=== PATIENT | female | born 1985 | race Caucasian/White ===

== ENCOUNTER 2017-01-27 14:05 | Emergency (ER) | payer OTHER ==
[~2017-01-27] VITALS: Ht 170.2 cm; Wt 79.0 kg
[~2017-01-27 14:05] MED LIST: PRENTAB26 PO; [UNRECOGNIZED DRUG - CODE] SL
[2017-01-27 14:07] VITALS: TEMP 36.6; Ht 170.2 cm; Wt 79.0 kg
[2017-01-27] MEDS ORDERED: ESCI1TAB6 PO (14:18)
[2017-01-27] MEDS ORDERED: SBTSL/8 SL (14:18)
[2017-01-27] MEDS ORDERED: GABA600T PO (14:18)
--- NOTE | 2017-01-27 14:58 | DIAGNOSTIC IMAGING REPORT ---
LEFT CLAVICLE CLINICAL HISTORY: fall trauma. Pain. COMPARISON: None. DISCUSSION: Angled fracture mid left clavicular shaft. Bony apposition is generally good. The acromioclavicular joint appears to be intact. There is no evidence for soft tissue swelling. IMPRESSION: Angled fracture midshaft left clavicle The above report was generated using voice recognition software. It may contain grammatical, syntax or spelling errors. Electronically signed by: Shahriar Mustafa M.D. 01/27/2017 2:56 PM Dictated Date/Time: 01/27/2017 2:56 PM
--- NOTE | 2017-01-27 14:59 | DIAGNOSTIC IMAGING REPORT ---
LEFT SHOULDER MIN 2 VIEWS ROUTINE CLINICAL HISTORY: fall trauma COMPARISON: None. DISCUSSION: Noted again is angled fracture midshaft left clavicle. The shoulder specifically is negative for any additional acute bony abnormality. Glenohumeral joint is intact. There is no evidence for soft tissue swelling. IMPRESSION: Angled fracture midshaft left clavicle. The left shoulder is otherwise negative The above report was generated using voice recognition software. It may contain grammatical, syntax or spelling errors. Electronically signed by: Shahriar Mustafa M.D. 01/27/2017 2:57 PM Dictated Date/Time: 01/27/2017 2:57 PM
[2017-01-27] MEDS ORDERED: KETOROLAC TROMETHAMINE 60 MG/2 ML VIAL IM STA (15:11)
[2017-01-27] MEDS ORDERED: KETO10TA PO (15:17)
--- NOTE | 2017-01-27 15:18 | EMERGENCY ROOM VISIT NOTE ---
History Report prepared by Clark: Terrie Li Under the Supervision of: Dr. Lamin Jay D.O. First contact with patient: 14:23 Chief Complaint: FALL Stated Complaint: FALL,COLLAR BONE PAIN History of Present Illness The patient is a 31 year old female who presents to the Emergency Room with complaints of an episode of a fall beginning last night. The patient states that she has been having trouble sleeping lately and is extremely tired but is unable to sleep. She reports that she has been getting tired when she is standing and she got up last night to go to the bathroom and fell onto her left side. She complains of left shoulder and collarbone pain. The patient notes that she needs to schedule a sleep study. The patient rates her pain as an 8/10 in severity. Source of History: patient Onset: last night Position: other (global) Symptom Intensity: 8/10 Quality: other (fall) Timing: constant Note: The patient complains of left shoulder and collar bone pain. Review of Systems See HPI for pertinent positives & negatives. A total of 10 systems reviewed and were otherwise negative. Past Medical & Surgical Medical Problems: (1) No Known Active Medical Problems Family History No pertinent family history stated. Social History Marital Status: single Housing Status: lives alone Occupation Status: employed Current/Historical Medications Scheduled Buprenorphine HCl (Buprenorphine HCl), 16 MG SL BID Escitalopram Oxalate (Lexapro), 5 MG PO DAILY Gabapentin (Neurontin), 600 MG PO TID Allergies Coded Allergies: No Known Allergies (Unverified , 01/27/17) Physical Exam Vital Signs Date Time Temp Pulse Resp B/P (MAP) Pulse Ox O2 Delivery O2 Flow Rate FiO2 01/27/17 14:07 36.6 85 20 133/86 99 Room Air Physical Exam CONSTITUTIONAL/VITAL SIGNS: Reviewed / noted above. GENERAL: Non-toxic in appearance. INTEGUMENTARY: Warm, dry, and [place]. HEAD: Normocephalic. EYES: without scleral icterus or trauma. ENT/OROPHARYNX: clear and moist. LYMPHADENOPATHY/NECK: Is supple without lymphadenopathy or meningismus. RESPIRATORY: Lungs clear and equal. CARDIOVASCULAR: Regular rate and rhythm. GI/ABDOMEN: Soft and nontender. No organomegaly or pulsatile mass. No rebound or guarding. Normal bowel sounds. EXTREMITIES: Warm and well perfused. Tender to palpation to the lateral left clavicle. BACK: No CVA tenderness. NEUROLOGICAL: Intact without focal deficits. PSYCHIATRIC: normal affect. MUSCULOSKELETAL: Normally developed with good muscle tone. Medical Decision & Procedures ER Provider Diagnostic Interpretation: X ray results and stated below per my interpretation and radiology interpretation. LEFT SHOULDER MIN 2 VIEWS ROUTINE DISCUSSION: Noted again is angled fracture midshaft left clavicle. The shoulder specifically is negative for any additional acute bony abnormality. Glenohumeral joint is intact. There is no evidence for soft tissue swelling. IMPRESSION: Angled fracture midshaft left clavicle. The left shoulder is otherwise negative The above report was generated using voice recognition software. It may contain grammatical, syntax or spelling errors. Electronically signed by: Shahriar Mustafa M.D. 01/27/2017 2:57 PM Dictated Date/Time: 01/27/2017 2:57 PM LEFT CLAVICLE DISCUSSION: Angled fracture mid left clavicular shaft. Bony apposition is generally good. The acromioclavicular joint appears to be intact. There is no evidence for soft tissue swelling. IMPRESSION: Angled fracture midshaft left clavicle The above report was generated using voice recognition software. It may contain grammatical, syntax or spelling errors. Electronically signed by: Shahriar Mustafa M.D. 01/27/2017 2:56 PM Dictated Date/Time: 01/27/2017 2:56 PM ED Course 1423: Previous medical records were reviewed. The patient was evaluated in room B5. A complete history and physical examination was performed. 1511: Toradol Inj 60mg IM. Arm sling. 1513: On reevaluation, the patient is doing well. I discussed the results and findings with the patient. She verbalized agreement of the treatment plan. The patient was discharged home. Medical Decision Differential diagnosis: Etiologies such as fracture, dislocation, neurovascular compromise, compartment syndrome, soft tissue injury, as well as others were entertained. Medication Reconciliation: I attest that I have personally reviewed the patient' s current medication list. Blood pressure Screening: Patient was found to have normal blood pressure on screening and does not require follow-up. This is a 31-year-old female who presents to the ED with a chief complaint of left shoulder pain after fall yesterday. The patient had a ground-level fall. The left shoulder pain primarily in the left mid to lateral clavicle region. Her vital signs are normal. Her physical exam reveals some tenderness to the mid the left lateral clavicle. There is a small deformity there. She is neurovascularly intact distally in the left upper extremity. X-ray shows a angulated left clavicle fracture. The patient was treated with Toradol IM. She 'll be discharged on Toradol by mouth. She was placed in the left arm sling. Orthopedic follow-up was recommended. Referral given to the orthopedist on-call , Dr. Kessler. Impression Primary Impression: Fracture of clavicle, left, closed Scribe Attestation The scribe's documentation has been prepared under my direction and personally reviewed by me in its entirety. I confirm that the note above accurately reflects all work, treatment, procedures, and medical decision making performed by me. Departure Information Dispostion Home / Self-Care Prescriptions Ketorolac (Toradol) 10 Mg Tab 10 MG PO Q6H Y for Pain, #20 TAB Prov: Lamin Jay D.O. 01/27/17 Referrals No Doctor, Assigned (PCP) Theodore Kessler M.D. Forms HOME CARE DOCUMENTATION FORM, IMPORTANT VISIT INFORMATION Patient Instructions ED Fx Clavicle, My [facility] Additional Instructions Keep sling in place for comfort. Toradol for pain as prescribed. Follow-up with Dr. Kessler from orthopedics for further evaluation. Call tomorrow for appointment.
[2017-01-27 15:27] VITALS: BP 148/88; PULSE 84; O2SAT 95
== END 2017-01-27 15:28 | disposition home or self-care (01) ==
LOC: C.EDB 14:06 → C.EDC 15:28
DX: S42.002A Fracture of unspecified part of left clavicle, initial encounter for closed fracture (principal); W19.XXXA Unspecified fall, initial encounter; Y92.013 Bedroom of single-family (private) house as the place of occurrence of the external cause; Z79.899 Other long term (current) drug therapy

== ENCOUNTER 2024-11-16 13:00 | Inpatient (IN) ==
[2024-11-16] MEDS: OXYTOCIN 30 UNITS/NSS 30 UNITS/500 ML BAG IV PRN (13:10)
[2024-11-16] MEDS: OXYTOCIN 10 UNITS/ML VIAL ONE (13:12)
[2024-11-16] MEDS: METHYLERGONOVINE MALEATE 0.2 MG/ML AMP IM ONE (13:18)
[2024-11-16] MEDS ORDERED: LIDOCAINE 1% LOCAL 20 ML VIAL INFIL PRN (13:21)
[2024-11-16] MEDS ORDERED: IBUPROFEN 600 MG TAB PO PRN (13:25)
[2024-11-16] MEDS ORDERED: BENZOCAINE 20% SPRY 85 APPLN/85 GM CAN EXT PRN (13:25)
[2024-11-16] MEDS ORDERED: ACETAMINOPHEN 325 MG TAB PO PRN (13:25)
[2024-11-16] MEDS ORDERED: HYDROCORTISONE ACETATE 25 MG SUPP PR PRN (13:25)
[2024-11-16] MEDS ORDERED: bisacodyL 10 MG SUPP PR PRN (13:25)
[2024-11-16] MEDS ORDERED: DIPHTHER/TETAN/PERTUS Vaccine (Tdap, Adol/Adult) 0.5mL IM ONE (13:25)
[2024-11-16] MEDS ORDERED: OXYTOCIN 30 UNITS/NSS 30 UNITS/500 ML BAG IV PRN (13:30)
--- NOTE | 2024-11-16 13:33 | History & Physical Report ---
Date of Service November 16, 2024 Assessment & Plan (1) : (2) Active labor: (3) No care in current : (4) History of drug use disorder: Plan Will be delivering. Peds notified. see delivery noted. Admission and Anticipated Discharge Date Admission Date: November 16, 2024 History of Present Illness Chief Complaint: and bleeding Primary Care Provider: NO PCP Patient is a 39yowf who presents to the ED noting she is 5 months and bleeding. She appeared uncomfortable and was sent immediately to labor and delivery. She was placed in the bed and was moaning. She had obvious rom of clear fluid noted. I did not see any blood. ON exam, there was a vertex noted at +2-+3, no blood. Attempted to get fht but not sure we were able to record any. Prepared for delivery as it was imminent. Patient notes she was told she was in Aug . Patent has had no care. She has been living in the [facility] and notes she is originally from [place]. She notes she has had another baby many years ago, vaginal delivery. Will continue to get history. Patient admits to gabapentin, suboxone (prescribed by a physician), vitamin and B12 Patient notes she has used methamphetamines early in the but none after she was told she was . She notes she used some kind of otc MJ vaping device. She denies hx of other drug use. Patient denies any significant medical issues other than hx of drug use. knda. Allergies Allergy/AdvReac Type Severity Reaction Status Date / Time No Known Allergies Allergy Verified 02/05/22 19:52 Home Medications Medication Instructions Recorded Confirmed Type buprenorphine 8 mg-naloxone 2 mg 1 film sublingual BID 11/26/21 02/05/22 History sublingual film furosemide 20 mg tablet (Lasix) 20 mg PO DAILY #7 tabs 02/05/22 Rx Patient History Medical History Gonorrhea Fracture of clavicle, left, closed Surgical History No pertinent past surgical history Social History Smoking Status: Current every day smoker Preferred Language: Filipino Feels Safe at Home: Yes OB History Previous hx of an about 13 years ago, male, lives with fob [employer] History unable to obtain Physical Exam Constitutional: WD/WN, vitals as above Gastrointestinal (Abdomen): soft and gravid Genitourinary: cx--c/c/+2-3 Results & Data Vital Signs (Past 12 Hours) Vital Signs Pulse BP 11/16/24 13:22 71 113/70 Coding Level of Care Code None Diagnoses Z34.90 Active labor O60.00 No care in current O09.30 History of drug use disorder F19.91
--- NOTE | 2024-11-16 13:45 | Delivery Summary ---
Vaginal Delivery Summary Date of Service November 16, 2024 Vaginal Delivery Summary Pre-operative Diagnosis: of uncertain gestational age srom active labor Post-operative Diagnosis: same Procedure: manual extraction of the placenta EBL: 732cc Anesthesia: none Procedure: The patient presented to labor and delivery, unattached, no pnc. Notes onset of bleeding about one hour prior to presentation. Was found to be srom , cephalic and +2-3 on presentation. The patient pushed for about one contraction to deliver a viable female in dop position. The rest of the infant was then delivered without difficulty. The baby was vigorous. The nose and mouth were again bulb suctioned and the was placed in the maternal abdomen for drying and attention. Shortly after delivery it was noted that the cord had avulsed from the placenta. Cord was clamped and cut at the umbilicus. The patient began to have gushing blood so decision made for manual extractions of the placenta. This was accomplished and appeared to be intact. Cervix/sulci/rectum/perineum were intact. Hemostasis obtained with IM pitocin and fundal massage, and IM metergine after determining she was normotensive. Apgars were 8/9. Mother and baby doing well at the end of the delivery. Per peds, baby appears to be at least 36 weeks and perhaps even older. Patient aware that a urine drug screen will be obtained. She notes she is on subutex 8mg tid and gabapentin 800mg tid. She was changed from suboxone to subutex when she was diagnosed with her in Aug. [facility] Vaginal Delivery Charge Delivery Type Details:
[2024-11-16] MEDS ORDERED: Patient's HEIGHT &/or WEIGHT Needed SCH (14:00)
[2024-11-16 14:30] LABS: Hematocrit (blood only) 34.3 % (37.0-47.0); Hemoglobin 10.9 g/dl (12.0-16.0); Mean Corpuscular Hgb Conc 31.8 g/dL (32.0-36.0); Mean Corpuscular Volume 81.7 fL (80.0-100.0); Mean Platelet Volume 10.9 fL (9.4-12.4); Platelet Count 259 K/uL (130-400); RDW Coefficient of Variation 13.8 % (11.5-14.5); RDW Standard Deviation 40.6 fL (36.4-46.3); White Blood Count 10.92 K/ul (4.8-10.8)
[2024-11-16 14:53] LABS: Albumin Level 2.9 gm/dl (3.4-5.0); Bilirubin,Total 0.3 mg/dl (0.2-1.0); Calcium 8.6 mg/dl (8.6-10.3); Creatinine Clr Calc Pharmacy 187.3 ml/min; Globulin 2.9 gm/dl (2.5-4.0); Potassium 4.1 mmol/L (3.5-5.1); Total Protein 5.8 gm/dl (6.0-8.3)
[2024-11-16 15:13] LABS: Rubella IgG Ab Equivocal (Immune)
[2024-11-16] MEDS: ceFAZolin 1000MG 1,000 MG/7.5 ML SYR IV STA (15:17)
[2024-11-16] MEDS: buprenorphine HCL 8 MG SUBL SL SCH (15:17)
[2024-11-16 16:28] LABS: Amphetamines+Metham, Urine Pos (Neg); Barbiturates, Urine Neg (Neg); Benzodiazepine, Urine Neg (Neg); Cocaine, Urine Neg (Neg); Fentanyl, Urine Neg (Neg); MDMA (Ecstacy), Urine Neg (Neg); Marijuana, Urine Pos (Neg); Methadone, Urine Neg (Neg); Opiate, Urine Neg (Neg); Phencyclidine, Urine Neg (Neg)
[2024-11-16] MEDS: GABAPENTIN 800 MG TAB PO SCH (16:37)
--- NOTE | 2024-11-16 18:28 | Communication Note ---
Date of Service: November 16, 2024 Patient resting in her pp room. Feels well. Informed patient that her drug tox was positive for amphetamines/meth and THC. She continues to note that she has not done meth since Aug. Patient desires nicotene patch, smokes at least a pack a day. Ordered. Patient understands that a report will be filed with [facility] given these findings.
--- OUTSIDE RECORDS SUMMARY | 2024-11-16 20:14 | External Medical Summary | Summary of Care ---
Author Name Unknown Organization [facility] Address [address] [place] [address] Phone [phone] Care Team Providers Care Furniture Duster Name Role Phone Serena Orta MD Primary Care Provid er Reason for Visit * Reason Comments eRx-Medication Refill Encounter Details Date Type Department Care Team (Late st Contact Info) Description 06/07/2024 Refill [facility] [address] [place] [address] Annabella Nuñez MD [address] [place] [address] NUBIA (generalized anxiety disorder); Sciatica of left side Allergies No known active allergiesdocumented as of this encounter (statuses as of 06/07/2024) Medications Buprenorphine HCl-Naloxone HCl (SUBOXONE) 8-[address] film [address] under the tongue daily. Active Multivitamin Adults Oral Tablet Take by mouth. Activ e Gabapentin 800 MG Oral Tablet (Neurontin)Maday cations:NUBIA (generalized anxiety disorder),Sciat ica of left side take 1 tablet by mouth three times a day IN THE MORNING AT NOON and BEFORE BEDTIME - no further refills without appointment 90 Tablet 5 4 Active documented as of this encounter (statuses as of 06/07/2024) Active Problems Problem Noted Date Diagnosed Date Opioid abuse, in remission 08/04/2022 NUBIA (generalized anxiety disorder) 08/04/2022 Sciatica of left side 08/04/2022 Stress reaction 07/02/2022 Headache 07/02/2022 Other problems related to ho using and economic circumstances 07/02/2022 Gonorrhea 07/02/2022 Cigarette smoker 09/21/2011 Overview (09/21/2011): As of 09/19/11 pt states she smokes about 2-3 cig/day. She has been encouraged to quit for her and her baby's well being. documented as of this encounter (statuses as of 06/07/2024) Resolved Problems Problem Noted Date Diagnosed Date Resolved Date Leg swelling 07/02/2022 10/11/2023 Hypokalemia 07/02/2022 10/11/2023 Abdominal pain 07/02/2022 10/11/2023 ADVANCE DIRECTIVE INFORMATION 11/27/2011 05/18/2024 Overview (05/21/2011): No, Advance Directive brochure offered , patient declined. Other placental conditions a ffecting management of mother, delivered 10/16/2011 09/15/19 16 Overview (10/16/2011): Low lying placenta resolved on ultrasound done in [place] on 09/19/11. Supervision of other high-risk 05/28/2011 09/15/2015 Overview (10/18/2015): ICD-10 update of inactive term Antepartum drug dependence 05/28/2011 0 03/14/2018 Overview (09/21/2011): As of 09/19/11 at 32 2/7 weeks gestation, Ms. Elinor Gabriel reports she has had to increase her Subutex dosing from 8 mg BID to 12 mg BID but that she is currently well controlled symptomatically since discontinuing her abuse of Suboxone. As of this date, her baby's EFW was noted to be 1903 grams (34%) with an LIANA of 22. From 09/19/11 she had been scheduled to undergo an MDC where likely management course will be review and discussed with the patient. Pt understands that from a drug recovery standpoint, she is under that ideal management course while currently on her Subutex. She has agreed to f/u in 6 weeks for a f/u growth scan prior to her being delivered. documented as of this encounter (statuses as of 06/07/2024) Immunizations Name Administration Dates Next Due Pneumococcal Polysaccharide PPV23 (Pneumovax) 09/10/2016 Seasonal Influenza Vac., MDV , IM, 0.5 mL (Fluzone) 05/14/2011 Seasonal Influenza Virus Vac cine, Unspecified Formulation 01/31/2022 TDAP (age 10 and older)(Boostrix) 10/11/2023(Def erred: Patient Refused) TDAP, Age 7 and older, IM (Adacel) 11/16/2011 documented as of this encounter Social History Tobacco Use Types Packs/Day Years Used Date Smoking Tobacco: Every Day Cigarettes Smokeless Tobacco: Never Alcohol Use Standard Drinks/Week Comments No 0 (1 standard drink = 0.6 oz pur e alcohol) Hunger Vital Sign Answer Date Recorded Within the past 12 months, y ou worried that your food would run out before you got the money to buy more. Never true 10/09/19 24 Within the past 12 months, t he food you bought just didn't last and you didn't have money to get more. Never true 10/09/2023 Childcare Answer Date Recorded Do you feel overwhelmed with taking care of a child, family member or friend? No 10/09/2023 Does your family need help f inding childcare? (Household - for ages 0-17 years) Not on file 10/09/2023 Clothing Answer Date Recorded Have you been unable to get clothing when it was really needed? No 10/09/2023 Is your family able to get c lothes or diapers when needed? (Household - for ages 0-17 years) Not on file 10/09/2023 Personal Safety Answer Date Recorded Do you feel unsafe or have concerns for your saf ety? No 10/09/2023 Do you have concerns for you r family's safety? (Household - for ages 0-17 years) Not on file 10/09/2023 Utilities Answer Date Recorded Do you have trouble paying y our heating, water, or electric bill? No 10/09/2023 Is your family able to pay t he heat, water, or electric bill? (Household - for ages 0-17 years) Not on file 10/09/2023 Does your family have access to good internet? (Household - for ages 0-17 years) Not on file 10/09/2023 Employment Status Answer Date Recorded Are you unemployed or without regular income? Ye s 10/09/2023 Does the household have a re gular source of income? (Household - for ages 0-17 years) Not on file 10/09/2023 Social Connections Answer Date Recorded How often do you feel lonely or isolated from th ose around you? Often 10/09/2023 Financial Resource Strain Answer Date R ecorded Do you have any trouble payi ng for your medications, or do you think you might in the future? No 10/09/2023 Does your family have troubl e paying for medicine? (Household - for ages 0-17 years) Not on file 10/09/2023 Transportation Needs Answer Date Record ed READ ONLY Do you have troubl e getting a ride to medical visits or work? Often True 10/09/2023 Does your family have a hard time getting a ride to doctors visits? (Household - for ages 0-17 years) Not on file 10/09/2023 Has lack of transportation k ept you from medical appointments, meetings, work, or from getting things needed for daily living? Check all that apply. (Adult - for ages 18 years and over) Not on file 10/09/2023 Do you (or your family) have trouble finding or paying for a ride (transportation)? (Household - for ages 0-17 years) Not on file 10/09/2023 Housing Stability Answer Date Recorded Do you currently live in a s helter or have no steady place to sleep at night? No 10/09/2023 READ ONLY Do you think you a re at risk of becoming homeless? Yes 10/09/2023 Does your family worry about paying for your home or becoming homeless? (Household - for ages 0-17 years) Not on file 0 10/09/2023 Are you homeless or worried that you might be in the future? (Adult - for ages 18 years and over) Not on file Are you (or your family) alexa eless or worried that you might be in the future? (Household - for ages 0-17 years) Not on file Food Insecurity Answer Date Recorded Do you need food for this week? No 10/09/2023 Are you able to get enough f ood for your family? (Household - for ages 0-17 years) Not on file 10/09/2023 Does your family need food t his week? (Household - for ages 0-17 years) Not on file 10/09/2023 Do you always have enough fo od for your family? (Household - for ages 0-17 years) Not on file 10/09/2023 Comments No Sex and Gender Information Value Date Recorded Sex Assigned at Female 01/31/2023 1:49 PM EDT Legal Sex Female 5:54 AM EST Gender Identity Female 01/31/2023 1:49 PM EDT Sexual Orientation Straight 01/31/2023 1: 49 PM EDT Occupation Industry Job Start Date Job End Date unemployed Not on file Not on file Not on file documented as of this encounter Miscellaneous Notes * Telephone Encounter - Thalia Diaz - 06/07/2024 7:15 PM ESTRefused Prescriptions: Disp Refills Gabapentin 800 MG Oral Tablet (Neurontin) 90 Tab*0 Sig: TAKE 1 TABLET BY MOUTH THREE TIMES DAILY EVERY MORNING, AT NOON, AND BEFORE BEDTIMERefused By: Flores DIAZ for Refusal: Duplicate Request documented in this encounter Plan of Treatment Health Maintenance Due Date Last Done Comments Hepatitis B Vaccine (1 of 3 - 19+ 3-dose series) 2006 HPV/Co-Test 2017 Depression Screening 09/10/2017 09/10/2016 Pneumococcal Vaccine: Pediatrics (0 to 5 Years) and At-Risk Patients (6 to 64 Years) (2 of 2 - PCV) 09/10/2017 09/10/2016 Cervical Cancer Screening 03/14/2021 Pap Smear 03/14/2021 03/14/2018, 03/0 09/2015, 06/17/2014, Additional history exists DTap/Tdap Vaccines (2 - Td or Tdap) 11/15/2021 11/16/2011 COVID-19 Vaccine ( - season) 2024 Influenza Vaccine (FLU shot) (#1) 2024 01/31/2022, 05/14/2011 HPV (Gardasil) Vaccine Aged Out No lo nger eligible based on patient's age to complete this topic MENINGOCOCCAL (MENACTRA/MENVEO) Aged Out No longer eligible based on patient's age to complete this topic documented as of this encounter Medical Devices Not on filedocumented as of this encounter Visit Diagnoses Diagnosis NUBIA (generalized anxiety disorder) Generalized anxiety disorder Sciatica of left side Sciatica documented in this encounter Advance Directives * Full Code (Latest Code Status on File) Date Activated Date Inactivated Comments 11/15/2011 8:28 AM 11/16/2011 10:20 PM This order re flects the patients wishes and were consensually agreed upon. Care Teams Furniture Duster Relationship Specialty Start Date End Date Serena Orta MD [address] [place] [address] PCP - General Family Medicine 07/02/22 documented as of this encounter
--- OUTSIDE RECORDS SUMMARY | 2024-11-16 20:14 | External Medical Summary | Summary of Care ---
Author Name Unknown Organization [facility] Address [address] [place] [address] Phone [phone] Care Team Providers Care Informatics Consultant Name Role Phone Serena Orta MD Primary Care Provid er Encounter Details Date Type Department Care Team (Late st Contact Info) Description 08/04/2024 Population Health External Data Unspecified Department Allergies No known active allergiesdocumented as of this encounter (statuses as of 08/04/2024) Medications Buprenorphine HCl-Naloxone HCl (SUBOXONE) 8-[address] under the tongue daily. Active Multivitamin Adults Oral Tablet Take by mouth. Active Gabapentin 800 MG Oral Tablet (Neurontin)Maday cations:NUBIA (generalized anxiety disorder),Sciat ica of left side take 1 tablet by mouth three times a day IN THE MORNING AT NOON and BEFORE BEDTIME. 90 Tablet 5 06/08/2024 Active documented as of this encounter (statuses as of 08/04/2024) Active Problems Problem Noted Date Diagnosed Date [...] as of this encounter (statuses as of 08/04/2024) Resolved Problems Problem Noted Date Diagnosed Date Resolved Date Leg swelling 07/02/2022 10/11/2023 Hypokalemia 07/02/2022 10/11/2023 Abdominal pain 07/02/2022 10/11/2023 ADVANCE DIRECTIVE INFORMATION 11/27/2011 05/18/2024 Overview (05/21/2011): No, Advance Directive brochure offered , patient declined. Other placental conditions a ffecting management of mother, delivered 10/16/2011 09/15/19 16 Overview (10/16/2011): Low lying placenta resolved on ultrasound done in [place] on 09/19/11. Supervision of other high-risk 05/28/2011 [...] as of this encounter (statuses as of 08/04/2024) Immunizations Name Administration Dates Next Due Pneumococcal [...] on file documented as of this encounter Plan of Treatment Health Maintenance Due Date Last Done Comments Hepatitis B Vaccine (1 of 3 - 19+ 3-dose series) 2006 HPV/Co-Test 2017 Depression Screening 09/10/2017 09/10/2016 Pneumococcal Vaccine: Pediatrics (0 to 5 Years) and At-Risk Patients (6 to 18 Years and 19+ Years) (2 of 2 - PCV) 09/10/2017 09/10/2016 Cervical Cancer Screening 03/14/2021 Pap Smear 03/14/2021 03/14/2018, 0309/2015, 06/17/2014, Additional history exists DTap/Tdap Vaccines (2 [...] Not on filedocumented as of this encounter Advance Directives * Full Code (Latest Code Status on File) Date Activated Date Inactivated Comments 11/15/2011 8:28 AM 11/16/2011 10:20 PM This order re flects the patients wishes and were consensually agreed upon. Care Teams Informatics Consultant Relationship Specialty Start Date End Date Serena Orta MD PCP - General Family Medicine 07/02/22 documented as of this encounter
--- OUTSIDE RECORDS SUMMARY | 2024-11-16 20:14 | External Medical Summary | Summary of Care ---
Author Name Unknown Organization [facility] Address [address] [place] [address] Phone [phone] Care Team Providers Care Fur Trimming Machine Operator Name Role Phone Kaushik Giraldo MD Primary Care Provid er Reason for Visit * Reason Onset Date Comments Medication Refill 06/05/2024 Encounter Details Date Type Department Care Team (Late st Contact Info) Description 06/05/[address] [address] Kaushik Giraldo MD [address] [place] [address] [phone] NUBIA (generalized anxiety disorder); Sciatica of left side Allergies No known active allergiesdocumented as of this encounter (statuses as of 06/08/2024) Medications Buprenorphine HCl-Naloxone HCl (SUBOXONE) 8-[address] under the tongue daily. Active Multivitamin Adults Oral Tablet Take by mouth. Activ e Gabapentin 800 MG Oral Tablet (Neurontin)In dications:NUBIA (generalized anxiety disorder),Sci atica of left side take 1 tablet by mouth three times a day IN THE MORNING AT NOON and BEFORE BEDTIME. 90 Tablet 5 06/08/20 24 Active Gabapentin 800 MG Oral Tablet (Neurontin)In dications:NUBIA (generalized anxiety disorder),Sci atica of left side take 1 tablet by mouth three times a day IN THE MORNING AT NOON and BEFORE BEDTIME - no further refills without appointment 90 Tablet 5 10/11/19 24 024 Discontinued(Re fill) Gabapentin 800 MG Oral Tablet (Neurontin)In dications:NUBIA (generalized anxiety disorder),Sci atica of left side take 1 tablet by mouth three times a day IN THE MORNING AT NOON and BEFORE BEDTIME - no further refills without appointment 90 Tablet 06/08/20 24 024 Discontinued documented as of this encounter (statuses as of 06/08/2024) Active Problems Problem Noted Date Diagnosed Date [...] as of this encounter (statuses as of 06/08/2024) Resolved Problems Problem Noted Date Diagnosed Date Resolved Date Leg swelling 07/02/2022 10/11/2023 Hypokalemia 07/02/2022 10/11/2023 Abdominal pain 07/02/2022 10/11/2023 ADVANCE DIRECTIVE INFORMATION 11/27/2011 05/18/2024 Overview (05/21/2011): No, Advance Directive brochure offered , patient declined. Other placental conditions a ffecting management of mother, delivered 10/16/2011 09/15/19 16 Overview (10/16/2011): Low lying placenta resolved on ultrasound done in [place] on 09/19/11. Supervision of other high-risk 05/28/2011 [...] as of this encounter (statuses as of 06/08/2024) Immunizations Name Administration Dates Next Due Pneumococcal [...] as of this encounter Miscellaneous Notes * Addendum Note - Kaushik Giraldo MD - 06/08/2024 11:49 AM EST Addended by: KAUSHIK GIRALDO on: 06/08/2024 11:49 AM Modules accepted: Orders * Telephone Encounter - Kaushik Giraldo MD - 06/08/2024 11:49 AM EST Signed Prescriptions: Disp Refills Gabapentin 800 MG Oral Tablet (Neurontin) 90 Tab*0 Sig: take 1 tablet by mouth three times a day IN THE MORNING AT NOON and BEFORE BEDTIME - no further refills without appointmentAuthorizing Provider: ANNABELLA NUÑEZ * Telephone Encounter - Annabella Nuñez MD - 06/08/2024 10:57 AM ESTSigned Prescriptions: Disp Refills Gabapentin 800 MG Oral Tablet (Neurontin) 90 Tab*0 Sig: take 1 tablet by mouth three times a day IN THE MORNING AT NOON and BEFORE BEDTIME - no further refills without appointment Authorizing Provider: ANNABELLA NUÑEZ * Telephone Encounter - Kady Gamboa client analyst - 06/08/2024 10:32 AM EST Pt is calling for a status check. She is asking for high priority. Thank you, Enrike Gamboa, Steward/Stewardess [employer] Supervisor [facility] (Former[facility]) 06/08/2024,10:33 AM * Telephone Encounter - Ana Franks client analyst - 06/05/2024 4:30 PM EST Pt is without medication, requesting high priority. Did you pend patient's preferred pharmacy and medication before forwarding?yes Pharmacy: [id number] Pending Prescriptions: Disp Refills Gabapentin 800 MG Oral Tablet (Neurontin) 90 Tab*5 Sig: take 1 tablet by mouth three times a day IN THE MORNING AT NOON and BEFORE BEDTIME - no further refills without appointment Last Visit: 10/11/2023 (in office), Visit date not found (telemedicine) Next Visit: Visit date not found If no future appointments scheduled, and last appointment is greater than a year ago, please schedule patient for a follow-up appointment Last date the medication was ordered: 10/11/2023 Is this request for a controlled substance?No Urine Drug Screen: Results for orders placed or performed in visit on 10/29/11 TOX SCREEN, URINE, W/ CONFIRMATION Result Value Amphetamine NEGATIVE Barbiturates NEGATIVE Benzodiazepines NEGATIVE Cannabinoids NEGATIVE Cocaine Metabolite NEGATIVE Morphine / Codeine NEGATIVE OXYCODONE NEGATIVE METHADONE MEDICAL NEGATIVE TOX COMMENT SEE COMMENT DETECTION LIMIT SEE COMMENT Patient Phone Numbers [facility] [phone] Labs: Lab Results Component Value Date/Time CREAT 0.4 (L) 09/28/2011 01:02 PM POTASSIUM 4.4 09/28/2011 01:02 PM TSH 2.09 04/17/2011 12:24 PM ALT 20 09/28/2011 01:02 PM documented in this encounter Plan of Treatment Health Maintenance Due Date Last Done Comments Hepatitis B Vaccine (1 of 3 - 19+ 3-dose series) 2006 HPV/Co-Test 2017 Depression Screening 09/10/2017 09/10/2016 Pneumococcal Vaccine: Pediatrics (0 to 5 Years) and At-Risk Patients (6 to 64 Years) (2 of 2 - PCV) 09/10/2017 09/10/2016 Cervical Cancer Screening 03/14/2021 Pap Smear 03/14/2021 03/14/2018, 03/09/2015, 06/17/2014, Additional history exists DTap/Tdap Vaccines (2 - Td or Tdap) 11/15/2021 11/16/2011 COVID-19 Vaccine ( - 2023- season) 2024 Influenza Vaccine (FLU shot) (#1) [...] and were consensually agreed upon. Care Teams Fur Trimming Machine Operator Relationship Specialty Start Date End Date Kaushik Giraldo MD [address] [place] [address] PCP - General Family Medicine 07/02/22 documented as of this encounter
--- OUTSIDE RECORDS SUMMARY | 2024-11-16 20:14 | External Medical Summary | Summary of Care ---
Author Name Unknown Organization [facility] Address [address] [place] [address] Phone [phone] Care Team Providers Care House Painter Name Role Phone Serena Orta MD Primary Care Provid er Reason for Visit * Reason Onset Date Comments Medication Refill 06/05/2024 Encounter Details Date Type Department Care Team (Late st Contact Info) Description 06/05/[address] [address] Serena Orta MD [address] [place] [address] [phone] NUBIA (generalized anxiety disorder); Sciatica of left side Allergies No known active allergiesdocumented as of this encounter (statuses as of 06/08/2024) Medications Buprenorphine HCl-Naloxone HCl (SUBOXONE) 8-[address] under the tongue daily. Active Multivitamin Adults Oral Tablet Take by mouth. Activ e Gabapentin 800 MG Oral Tablet (Neurontin)Ind ications:NUBIA (generalized anxiety disorder),Scia desi of left side take 1 tablet by mouth three times a day IN THE MORNING AT NOON and BEFORE BEDTIME - no further refills without appointment 90 Tablet 4 Active Gabapentin 800 MG Oral Tablet (Neurontin)Ind ications:NUBIA (generalized anxiety disorder),Scia desi of left side take 1 tablet by mouth three times a day IN THE MORNING AT NOON and BEFORE BEDTIME - no further refills without appointment 90 Tablet 5 4 06/05/20 24 Discontin ued(Refil l) documented as of this encounter (statuses as [...] lying placenta resolved on ultrasound done in [place] on 09/19/11. Supervision of other high-risk 05/28/2011 [...] encounter Miscellaneous Notes * Telephone Encounter - Jenaro Nuñez MD - 06/08/2024 10:57 AM ESTSigned Prescriptions: Disp Refills Gabapentin 800 MG Oral Tablet (Neurontin) 90 Tab*0 Sig: take 1 tablet by mouth three times a day IN THE MORNING AT NOON and BEFORE BEDTIME - no further refills without appointment Authorizing Provider: JENARO NUÑEZ * Telephone Encounter - Kady Gamboa PHARM Tech - 06/08/2024 10:32 AM EST Pt is calling for a status check. She is asking for high priority. Thank you, Enrike Gamboa, Director Retirement [employer] [facility] ([facility] (Formerly Telepharm[facility]) 06/08/2024,10:33 AM * Telephone Encounter - Ana Franks PHARM Tech - 06/05/2024 4:30 PM EST Pt is without medication, requesting high priority. Did you pend patient's preferred pharmacy and medication before forwarding?yes Pharmacy: [id number] [facility] Pending Prescriptions: Disp Refills Gabapentin 800 MG [...] DETECTION LIMIT SEE COMMENT Patient Phone Numbers Labs: Lab Results Component Value Date/Time CREAT [...] and were consensually agreed upon. Care Teams House Painter Relationship Specialty Start Date End Date Serena Orta MD [address] [place] [id number] PCP - General Family Medicine 07/02/22 documented as of this encounter
[2024-11-16] MEDS: NICOTINE 21 MG/24 HR TDSY TD SCH (20:18)
[2024-11-16 20:54] LABS: Hep B Surface Ag with confirm Negative (Negative)
[2024-11-16 20:57] LABS: Treponema pallidum RflxConfirm Negative (Negative)
[2024-11-16 21:00] LABS: Hep C Ab Rflx HepCQuant RNA Negative (Negative)
[2024-11-16] MEDS: DOCUSATE SODIUM 100 MG CAP PO SCH (21:38)
[2024-11-17 05:04] VITALS: RESP 18
[2024-11-17 06:05] LABS: Hematocrit (blood only) 31.2 % (37.0-47.0)
--- NOTE | 2024-11-17 07:04 | Obstetrical Progress Note ---
Date of Service November 17, 2024 Assessment & Plan (1) Encounter for assessment: Plan: Patient is PPD 1 s/p and doing well - Eating well, voiding well, ambulating well - vitals reviewed and within normal limits - pain well controlled with analgesics - OOB, ambulation, diet progression as tolerated - Blood type: A+, GBS status unknown, rubella equivocal - Plan to discharge tomorrow - After discharge, 6 week follow up with [facility] O[facility]YN Admission and Anticipated Discharge Date Admission Date: November 16, 2024 Supervising Physician Co-Signing Physician Notes Resident Physician Supervision Note: I interviewed and examined the patient. Discussed with Dr. Clinton and agree with findings and plan as documented in the note. Any exceptions or clarifications are listed here: Doing well. Aware of positive UDS. Continues to note has not had meth since Aug. Understands a report will be made to [facility]. SS consult pending. Routine care. Will need rubella. Rest of pnl are all negative. Aware baby will stay for evaluation for [facility] for 5 days. Documented By: Ceciila Quispe MD, FACOG Subjective 39 yo status unknown but reports history of previous child , post- day 1 s/p . complicated by positive UDS for amphetamines/meth. Patient reports stopping meth usage in August and switching from Suboxone to Subutex therapy late August. Ambulation: ambulating normally Voiding: no voiding problems Passing Gas:: Yes Diet Tolerance:: regular diet Lochia:: Small Feeding Type:: bottle feeding Current Pain Level: 2/10 Resting comfortably this AM in NAD. Denies DAVISON, CP, SOB, N/V/D, LE pain/swelling. Physical Exam Physical Exam: General: patient resting comfortably, NAD, non-toxic in appearance, answers questions appropriately. Skin: warm, dry, intact HEENT: NC/AT, anicteric sclera, conjunctiva without injection, moist mucus membranes. Heart: +S1/S2, regular, no m/r/g Lungs: equal air entry bilaterally, no rales/rhonchi/wheezes Abd: +BS, soft, NT/ND, uterine fundus firm at umbilicus Ext: warm, no clubbing/cyanosis or edema Neuro: nonfocal, speech intact, no facial droop, moving all extremities. Results & Data Vital Signs (Past 12 Hours) Vital Signs Temp Pulse Resp BP Pulse Ox O2 Del Method 11/17/24 04:00 36.7 C 88 18 99/64 L 97 Room Air 11/17/24 00:45 37.3 C 105 H 20 127/73 97 Room Air 11/16/24 20:50 36.9 C 100 H 20 110/69 97 Room Air Resident Activity Tracking Resident Involvement: Resident Care Provided Care Provided: Adult Hospital Medicine and OB Delivery
[2024-11-17] MEDS: PRENATAL VITAMIN 1 TAB PO SCH (08:01)
[2024-11-17 14:25] VITALS: BP 100/62; PULSE 75; TEMP 97.7; O2SAT 94
[2024-11-17] MEDS ORDERED: bisacodyL 5 MG TABEC PO SCH (20:00)
[2024-11-20 08:11] LABS: Amphetamine Urine, Confirm 664 ng/mL (<250); Marijuana Quant, GCMS Urine 563 ng/mL (<5); Methamphetamine, Ur Confirm 1094 ng/mL (<250)
== END 2024-11-17 17:10 | disposition home or self-care (01) | DRG 806 ==
LOC: 4S1 13:00 → 4E2 16:40